=== PATIENT | female | born 1955 | race Caucasian/White ===

== ENCOUNTER 2016-07-17 10:00 | Outpatient (RCR) | payer MEDICARE, BC ==
[2016-04-12 23:50] VITALS: BP 122/64
[~2016-07-17 10:00] MED LIST: ALBUTEROL2.5 MG/3 M IH; AMLODIPINE10 MG PO; B-121000 MCG PO; EPIPEN 2-PAK1 MG/ML MR; FLONASE0.05 MG/AC INH; IBUPROFEN200 M2 PO; LEVSIN0.125 MG PO; LIORESAL 1010 MG/TAB PO; LISINOPRIL20 MG PO; MASON NATURAL2000 IU PO; NEURONTIN300 MG PO; NEURONTIN300 MG/CAP PO; ORPHENADRINE C100 MG PO; PLAQUENIL200 MG PO; PREDNISONE10 M1 PO; QUALITY CHOICE PO; SINGULAIR10 MG PO; SLOW-MAG 6464 MG/TAB PO; SYMBICORT1 AE5 INH; SYNTHROID0.15 MG PO; ULTRAM 50MG TAB50 MG PO; XOPENEX HF0.045 MG/A IH; ZANTAC150 MG PO; ZOFRAN ODT8 MG PO; ZYRTEC10 M1 PO
== END 2016-09-03 10:28 | disposition home or self-care (01) ==
LOC: PT 10:00
DX: Z47.89 Encounter for other orthopedic aftercare (principal)

== ENCOUNTER 2016-09-15 15:06 | Outpatient (RCR) | payer MEDICARE, BC ==
[2016-04-12 23:50] VITALS: BP 122/64
[2016-10-25] MEDS ORDERED: IBU800 M1 PO (16:03)
[2016-10-25] MEDS ORDERED: ULTRAM 50MG TAB50 MG PO (16:04)
[2016-10-25] MEDS ORDERED: OMEPRAZOLE40 MG PO (16:07)
[2016-10-25] MEDS ORDERED: PREDNISONE20 M1 PO (16:33)
[2016-10-25] MEDS ORDERED: VIBRAMYCIN HYC100 MG PO (16:33)
== END 2016-12-14 | disposition home or self-care (01) ==
LOC: PT
DX: Z47.1 Aftercare following joint replacement surgery (principal); Z96.652 Presence of left artificial knee joint

== ENCOUNTER 2016-10-25 15:48 | Emergency (ER) | payer MEDICARE, BC ==
[2016-10-25] MEDS ORDERED: IBU800 M1 PO (16:03)
[2016-10-25] MEDS ORDERED: ULTRAM 50MG TAB50 MG PO (16:04)
[2016-10-25] MEDS ORDERED: OMEPRAZOLE40 MG PO (16:07)
[2016-10-25] MEDS ORDERED: VIBRAMYCIN HYC100 MG PO (16:33)
[2016-10-25] MEDS ORDERED: PREDNISONE20 M1 PO (16:33)
[2016-10-25 16:50] VITALS: BP 124/74
== END 2016-10-25 16:54 | disposition home or self-care (01) ==
LOC: ED 15:48
DX: J44.1 Chronic obstructive pulmonary disease with (acute) exacerbation (principal); J45.909 Unspecified asthma, uncomplicated; F17.210 Nicotine dependence, cigarettes, uncomplicated
CPT/HCPCS: J7512

== ENCOUNTER 2017-11-10 09:00 | Outpatient (RCR) | payer MEDICARE, BC ==
[~2017-11-10 09:00] MED LIST changes: +IBU800 M1 PO; +OMEPRAZOLE40 MG PO; +PREDNISONE20 M1 PO; +VIBRAMYCIN HYC100 MG PO
== END 2017-11-10 09:30 | disposition home or self-care (01) ==
LOC: PT 09:00
DX: Z47.89 Encounter for other orthopedic aftercare (principal); Z96.652 Presence of left artificial knee joint
CPT/HCPCS: G8978-GP; G8979-GP

== ENCOUNTER 2017-12-16 20:31 | Emergency (ER) | payer MEDICARE, BC ==
[2017-12-16 21:55] LABS: HEMATOCRIT 46.1 % (37.0-47.0); MEAN CELL VOLUME 92 fl (78-100); MEAN CORPUSCULAR HEMOGLOBIN 30 pg (27-31); MEAN CORPUSCULAR HGB CONC 33 g/dL (33-37); PLATELET COUNT 191 K/mm3 (130-400); RED BLOOD COUNT 5.01 M/mm3 (4.10-5.30); RED CELL DISTRIBUTION WIDTH 14.8 % (11.5-14.5); WHITE BLOOD COUNT 5.1 K/mm3 (4.8-10.8)
[2017-12-16 22:08] LABS: ALBUMIN 3.8 g/dL (3.5-5.0); BUN/CREATININE RATIO 17.2 (6.0-26.0); CALCIUM 9.1 mg/dL (8.4-10.2); POTASSIUM 4.2 mmol/L (3.6-5.0); TOTAL BILIRUBIN 0.4 mg/dL (0.2-1.3); TOTAL PROTEIN 7.5 g/dL (6.3-8.2)
[2017-12-16 22:40] LABS: LYMPHOCYTE 12 % (20-51); MONOCYTE 11 % (3-10); NEUTROPHILS 76 % (42-75)
[2017-12-16 23:29] LABS: TROPONIN-I < 0.03 ng/mL (0.00-0.06)
[2017-12-16 23:42] VITALS: BP 119/68
--- NOTE | 2017-12-16 23:42 | NUR ---
Patient admitted acute to [facility] via W/C. DX. COPD exacerbation With asthma, N/V. Oriented to room, bed controls. fall precautions and use of bed alarm by BILLING ASSISTANT. Refused to change into a gown.
[2017-12-17] MEDS ORDERED: COENZYME Q-10200 M1 PO (00:38)
[2017-12-17] MEDS ORDERED: MULTI-VITAMIN W1 TA1 PO (00:39)
[2017-12-17] MEDS ORDERED: FISH OIL1 IU PO (00:39)
[2017-12-17] MEDS ORDERED: CEFDINIR300 MG PO (08:32)
[2017-12-17] MEDS ORDERED: ZITHROMAX TRI-500 MG PO (08:32)
[2017-12-17] MEDS ORDERED: PREDNISONE20 M1 PO (08:34)
== END 2017-12-16 23:42 | disposition other institution (70) ==
LOC: ED 20:31 → MED/SURG 23:42
PROVIDERS: Nurse Practitioner Primary Care
DX: J44.0 Chronic obstructive pulmonary disease with (acute) lower respiratory infection (principal); J20.9 Acute bronchitis, unspecified; J44.1 Chronic obstructive pulmonary disease with (acute) exacerbation; I10 Essential (primary) hypertension; F17.200 Nicotine dependence, unspecified, uncomplicated; Z79.899 Other long term (current) drug therapy
CPT/HCPCS: J2405; J2930

== ENCOUNTER → 2017-12-24 | Outpatient (CLI) | payer MEDICARE, BC ==
[2017-12-17 06:35] VITALS: BP 143/92
[~2017-12-24] MED LIST changes: +CEFDINIR300 MG PO; +COENZYME Q-10200 M1 PO; +FISH OIL1 IU PO; +MULTI-VITAMIN W1 TA1 PO; +ZITHROMAX TRI-500 MG PO
== END ==
LOC: RAD 17:18
DX: R94.31 Abnormal electrocardiogram [ECG] [EKG] (principal)

== ENCOUNTER 2018-05-04 20:07 | Emergency (ER) | payer MEDICARE, BC ==
[~2018-05-04] VITALS: Ht 167.6 cm; Wt 90.9 kg
[2018-05-04 20:34] LABS: EOS # 0.4 (0.04-0.40); EOS % 4.9 % (1.0-5.0); HEMATOCRIT 44.3 % (37.0-47.0); HEMOGLOBIN 14.7 g/dL (12.5-16.0); LYMPH# 2.2 (1.50-4.00); MEAN CELL VOLUME 95 fl (78-100); MEAN CORPUSCULAR HEMOGLOBIN 31 pg (27-31); MEAN CORPUSCULAR HGB CONC 33 g/dL (33-37); MEAN PLATELET VOLUME 10.2 fl (7.4-10.4); MONO # 0.9 (0.20-0.80); NEU # 5.1 (1.40-6.50); PLATELET COUNT 250 K/mm3 (130-400); RED BLOOD COUNT 4.68 M/mm3 (4.10-5.30); RED CELL DISTRIBUTION WIDTH 13.6 % (11.5-14.5); WHITE BLOOD COUNT 8.6 K/mm3 (4.8-10.8)
[2018-05-04 20:47] LABS: ALBUMIN 3.8 g/dL (3.5-5.0); CALCIUM 9.4 mg/dL (8.4-10.2); POTASSIUM 3.9 mmol/L (3.6-5.0); TOTAL BILIRUBIN 0.4 mg/dL (0.2-1.3); TOTAL PROTEIN 6.7 g/dL (6.3-8.2)
[2018-05-04 20:54] LABS: CKMB ISOENZYME 3.5 ng/mL (0.6-3.5)
[2018-05-04 20:57] LABS: TROPONIN-I < 0.03 ng/mL (0.00-0.06)
[2018-05-04] MEDS ORDERED: BAYER ADVANCED500 MG PO (20:58)
[2018-05-04] MEDS ORDERED: LYRICA 25MG CAP25 MG PO (20:58)
[2018-05-04 21:03] LABS: PARTIAL THROMBOPLASTIN TIME 23.7 SECONDS (21.0-32.0)
[2018-05-05 00:45] LABS: TROPONIN-I 0.13 ng/mL (0.00-0.06)
[2018-05-05 01:51] LABS: PROTHROMBIN TIME 9.9 SECONDS (9.0-12.0)
[2018-05-05 01:57] VITALS: BP 141/91
== END 2018-05-05 01:57 | disposition short-term general hospital (02) ==
LOC: ED 20:07
PROVIDERS: Nurse Practitioner Family
DX: I21.4 Non-ST elevation (NSTEMI) myocardial infarction (principal); I10 Essential (primary) hypertension; E78.5 Hyperlipidemia, unspecified; K21.9 Gastro-esophageal reflux disease without esophagitis; F17.210 Nicotine dependence, cigarettes, uncomplicated; Z79.82 Long term (current) use of aspirin; Z79.899 Other long term (current) drug therapy; E03.9 Hypothyroidism, unspecified
CPT/HCPCS: J1644; J1885; J2405; J7030

== ENCOUNTER 2018-08-15 16:27 | Emergency (ER) | payer MEDICARE, BC ==
[~2018-08-15] VITALS: Ht 162.6 cm; Wt 95.5 kg
[~2018-08-15 16:27] MED LIST changes: +BAYER ADVANCED500 MG PO; +LYRICA 25MG CAP25 MG PO
[2018-08-15] MEDS ORDERED: PANTOPRAZOLE SO40 MG PO (18:03)
[2018-08-15 19:46] VITALS: BP 134/91
== END 2018-08-15 19:46 | disposition home or self-care (01) ==
LOC: ED 16:27
DX: S80.11XA Contusion of right lower leg, initial encounter (principal); I10 Essential (primary) hypertension; I25.10 Atherosclerotic heart disease of native coronary artery without angina pectoris; J44.9 Chronic obstructive pulmonary disease, unspecified; L94.9 Localized connective tissue disorder, unspecified; F17.210 Nicotine dependence, cigarettes, uncomplicated; Z98.890 Other specified postprocedural states; Z90.710 Acquired absence of both cervix and uterus; Z96.653 Presence of artificial knee joint, bilateral; W22.03XA Walked into furniture, initial encounter; Y92.009 Unspecified place in unspecified non-institutional (private) residence as the place of occurrence of the external cause

== ENCOUNTER 2019-01-05 13:00 | Outpatient (RCR) | payer MEDICARE, BC ==
[~2019-01-05 13:00] MED LIST changes: +PANTOPRAZOLE SO40 MG PO
== END 2019-01-09 | disposition still patient (30) ==
LOC: PT
DX: M54.12 Radiculopathy, cervical region (principal); G62.9 Polyneuropathy, unspecified; R29.898 Other symptoms and signs involving the musculoskeletal system; R53.1 Weakness

== ENCOUNTER 2019-02-02 11:00 | Outpatient (RCR) | payer MEDICARE, BC | END 2019-02-02 11:30 | LOC: PT | DX: M54.12 Radiculopathy, cervical region (principal); G62.9 Polyneuropathy, unspecified; R29.898 Other symptoms and signs involving the musculoskeletal system ==

== ENCOUNTER → 2019-03-09 | Outpatient (CLI) | payer MEDICARE, BC | LOC: MAMMO 08:27 | DX: Z12.31 Encounter for screening mammogram for malignant neoplasm of breast (principal) ==

== ENCOUNTER 2019-04-02 17:37 | Emergency (ER) | payer MEDICARE, BC ==
[2019-04-02 18:07] LABS: HEMATOCRIT 43.4 % (37.0-47.0); HEMOGLOBIN 14.7 g/dL (12.5-16.0); MEAN CELL VOLUME 90 fl (78-100); MEAN CORPUSCULAR HEMOGLOBIN 30 pg (27-31); MEAN CORPUSCULAR HGB CONC 34 g/dL (33-37); MEAN PLATELET VOLUME 11.1 fl (7.4-10.4); PLATELET COUNT 225 K/mm3 (130-400); RED BLOOD COUNT 4.83 M/mm3 (4.10-5.30); RED CELL DISTRIBUTION WIDTH 13.8 % (11.5-14.5)
[2019-04-02 18:15] LABS: ALBUMIN 3.3 g/dL (3.4-4.8); POTASSIUM 4.1 mmol/L (3.5-5.1)
[2019-04-02 18:17] LABS: TOTAL PROTEIN 7.8 g/dL (6.2-8.1)
[2019-04-02 18:19] LABS: TOTAL BILIRUBIN 0.5 mg/dL (0.2-1.2)
[2019-04-02 18:31] LABS: URINE APPEARANCE CLOUDY; URINE BILIRUBIN NEGATIVE (NEGATIVE); URINE BLOOD 250 ery/uL (NEGATIVE); URINE COLOR AMBER; URINE GLUCOSE NEGATIVE (NEGATIVE); URINE KETONE 2+ (NEGATIVE); URINE LEUKOCYTE ESTERASE TRACE (NEGATIVE); URINE NITRATE NEGATIVE (NEGATIVE); URINE PROTEIN(semi-quant) 3+ mg/dL (NEGATIVE); URINE UROBILINOGEN NORMAL (NORMAL); URINE WBC 16-30 /hpf (0-3)
[2019-04-02 18:32] LABS: LYMPHOCYTE 4 % (20-51); MONOCYTE 11 % (3-10); NEUTROPHILS 85 % (42-75)
[2019-04-02] MEDS ORDERED: ASPIRIN E.C. 8181 MG PO (20:11)
[2019-04-02] MEDS ORDERED: NITROGLYCERIN0.4 M1 SL (20:12)
[2019-04-02] MEDS ORDERED: CEFDINIR300 MG PO (21:47)
[2019-04-02 21:56] VITALS: BP 132/76
== END 2019-04-02 21:56 | disposition home or self-care (01) ==
LOC: ED 17:37
PROVIDERS: Family Medicine
DX: N39.0 Urinary tract infection, site not specified (principal); E86.9 Volume depletion, unspecified; J44.9 Chronic obstructive pulmonary disease, unspecified; K21.9 Gastro-esophageal reflux disease without esophagitis; F17.210 Nicotine dependence, cigarettes, uncomplicated; Z90.710 Acquired absence of both cervix and uterus; Z98.890 Other specified postprocedural states; Z79.82 Long term (current) use of aspirin; Z79.51 Long term (current) use of inhaled steroids
CPT/HCPCS: A4216; J0696; J2405; J7030

== ENCOUNTER 2019-12-27 21:47 | Emergency (ER) | payer MEDICARE, BC ==
[~2019-12-27] VITALS: Ht 165.1 cm; Wt 96.8 kg
[~2019-12-27 21:47] MED LIST changes: +AMLODIPINE BESYL5 MG PO; -AMLODIPINE10 MG PO; +ASPIRIN E.C. 8181 MG PO; +NITROGLYCERIN0.4 M1 SL
[2019-12-27 23:03] LABS: BASO # 0.1 (0.02-0.10); EOS # 0.3 (0.04-0.40); EOS % 4.3 % (1.0-5.0); HEMATOCRIT 43.8 % (37.0-47.0); HEMOGLOBIN 14.4 g/dL (12.5-16.0); LYMPH# 1.5 (1.50-4.00); MEAN CELL VOLUME 94 fl (78-100); MEAN CORPUSCULAR HEMOGLOBIN 31 pg (27-31); MEAN CORPUSCULAR HGB CONC 33 g/dL (33-37); MEAN PLATELET VOLUME 10.2 fl (7.4-10.4); MONO # 0.8 (0.20-0.80); NEU # 4.4 (1.40-6.50); PLATELET COUNT 226 K/mm3 (130-400); RED BLOOD COUNT 4.68 M/mm3 (4.10-5.30)
[2019-12-27 23:14] LABS: ALBUMIN 3.6 g/dL (3.4-4.8); POTASSIUM 3.8 mmol/L (3.5-5.1); SODIUM 143 mmol/L (136-145)
[2019-12-27 23:15] LABS: CALCIUM 9.6 mg/dL (8.3-10.5)
[2019-12-27 23:16] LABS: GLUCOSE 109 mg/dL (65-105)
[2019-12-27 23:17] LABS: TOTAL PROTEIN 6.5 g/dL (6.2-8.1)
[2019-12-27 23:18] LABS: CARBON DIOXIDE 23 mmol/L (23-31); TOTAL BILIRUBIN 0.3 mg/dL (0.2-1.2)
[2019-12-27 23:22] LABS: AST-SGOT 26 U/L (5-34)
[2019-12-27 23:23] LABS: ALT/SGPT 28 U/L (0-55)
[2019-12-27 23:29] LABS: CKMB ISOENZYME 3.2 ng/mL (0.0-3.5)
[2019-12-27 23:32] LABS: TROPONIN-I < 0.03 ng/mL (<0.030)
[2019-12-28 01:23] VITALS: BP 146/92
== END 2019-12-28 01:23 | disposition left against medical advice (07) ==
LOC: ED 21:47
PROVIDERS: Nurse Practitioner Family
DX: R00.2 Palpitations (principal); R07.89 Other chest pain; I25.2 Old myocardial infarction; I10 Essential (primary) hypertension; J45.909 Unspecified asthma, uncomplicated; K21.9 Gastro-esophageal reflux disease without esophagitis; E78.5 Hyperlipidemia, unspecified; F17.210 Nicotine dependence, cigarettes, uncomplicated; Z79.82 Long term (current) use of aspirin; Z96.659 Presence of unspecified artificial knee joint

== ENCOUNTER → 2020-12-26 13:55 | Outpatient (RCR) | payer MEDICARE, BC ==
[~2020-12-26 13:55] MED LIST changes: +ASMANEX220 MCG IH; +BAYER BACK & B1 EACH PO; +BREO ELLIPTA 21 EACH IH; +EPIPEN 2-PAK1 MG/ML IM; -EPIPEN 2-PAK1 MG/ML MR; -FISH OIL1 IU PO; +FLONASE ALLERG9.9 ML NS; -FLONASE0.05 MG/AC INH; -LYRICA 25MG CAP25 MG PO; +LYRICA75 MG PO; -MASON NATURAL2000 IU PO; +MUCUS RELIEF600 MG PO; +OMEGA 3 1,0001 EACH PO; +PRILOSEC OTC20 MG PO; +PROVENTIL0.09 MG/A1 IH; +SINGULAIR PO; -SINGULAIR10 MG PO; +SLOW-MAG 106 MG1 ECT PO; -SLOW-MAG 6464 MG/TAB PO; +SPIRIVA RE2.5 MCG/Ac IH; +TIAZAC180 MG PO; +TIZANIDINE HYDRO4 M1 PO; +ULTRAM50 M1 PO; +VITAMIN C100 M3 PO; +VITAMIN D325 MC1 PO; -ZYRTEC10 M1 PO; +ZYRTEC10 M3 PO
== END ==
LOC: PT 09-20 09:59
DX: M25.571 Pain in right ankle and joints of right foot (principal); G89.29 Other chronic pain

== ENCOUNTER 2020-12-26 14:17 | Outpatient (RCR) | payer MEDICARE, BC ==
[~2020-12-26 14:17] MED LIST changes: -ASMANEX220 MCG IH; -BAYER BACK & B1 EACH PO; -BREO ELLIPTA 21 EACH IH; -MUCUS RELIEF600 MG PO; -PRILOSEC OTC20 MG PO; -PROVENTIL0.09 MG/A1 IH; -SPIRIVA RE2.5 MCG/Ac IH; -TIAZAC180 MG PO; -TIZANIDINE HYDRO4 M1 PO; -VITAMIN C100 M3 PO
[2021-01-30] MEDS ORDERED: PROVENTIL0.09 MG/A1 IH (18:21)
[2021-01-30] MEDS ORDERED: VITAMIN C100 M3 PO (18:23)
[2021-01-30] MEDS ORDERED: BAYER BACK & B1 EACH PO (18:24)
[2021-01-30] MEDS ORDERED: TIAZAC180 MG PO (18:26)
[2021-01-30] MEDS ORDERED: BREO ELLIPTA 21 EACH IH (18:27)
[2021-01-30] MEDS ORDERED: MUCUS RELIEF600 MG PO (18:28)
[2021-01-30] MEDS ORDERED: ASMANEX220 MCG IH (18:32)
[2021-01-30] MEDS ORDERED: PRILOSEC OTC20 MG PO (18:34)
[2021-01-30] MEDS ORDERED: SPIRIVA RE2.5 MCG/Ac IH (18:35)
[2021-01-30] MEDS ORDERED: TIZANIDINE HYDRO4 M1 PO (18:38)
== END 2021-03-26 | disposition home or self-care (01) ==
LOC: PT
DX: M25.571 Pain in right ankle and joints of right foot (principal); G89.29 Other chronic pain; Z47.89 Encounter for other orthopedic aftercare

== ENCOUNTER 2021-01-31 08:03 | Outpatient (RCR) | payer MEDICARE, BC ==
[2021-01-30 18:00] VITALS: BP 144/89
[~2021-01-31 08:03] MED LIST changes: +ASMANEX220 MCG IH; +BAYER BACK & B1 EACH PO; +BREO ELLIPTA 21 EACH IH; +MUCUS RELIEF600 MG PO; +PRILOSEC OTC20 MG PO; +PROVENTIL0.09 MG/A1 IH; +SPIRIVA RE2.5 MCG/Ac IH; +TIAZAC180 MG PO; +TIZANIDINE HYDRO4 M1 PO; +VITAMIN C100 M3 PO
[2021-01-31 08:07] VITALS: BP 169/99
== END 2021-01-31 10:00 | disposition home or self-care (01) ==
LOC: AMSURD 08:03
DX: I82.461 Acute embolism and thrombosis of right calf muscular vein (principal)
CPT/HCPCS: J1650

== ENCOUNTER 2021-03-22 13:31 | Outpatient (RCR) | payer MEDICARE, BC | END 2021-06-20 | LOC: PT | DX: M79.671 Pain in right foot (principal) ==

== ENCOUNTER → 2021-05-16 | Outpatient (CLI) | payer MEDICARE, BC | LOC: VAS 10:38 | DX: Z86.718 Personal history of other venous thrombosis and embolism (principal) ==

== ENCOUNTER 2021-11-14 10:59 | Outpatient (RCR) | payer MEDICARE, BC | END 2021-12-10 | disposition home or self-care (01) | LOC: PT | DX: M25.571 Pain in right ankle and joints of right foot (principal) ==

== ENCOUNTER 2021-12-17 10:30 | Outpatient (RCR) | payer MEDICARE, BC | END 2022-01-09 | disposition home or self-care (01) | LOC: PT | DX: M25.571 Pain in right ankle and joints of right foot (principal) ==

== ENCOUNTER → 2022-01-08 | Outpatient (CLI) | payer MEDICARE, BC | LOC: MAMMO 10:45 | DX: Z12.31 Encounter for screening mammogram for malignant neoplasm of breast (principal) ==

== ENCOUNTER 2022-01-23 08:00 | Outpatient (RCR) | payer MEDICARE, BC | END 2022-02-09 | disposition home or self-care (01) | LOC: PT | DX: M25.571 Pain in right ankle and joints of right foot (principal) ==

== ENCOUNTER 2022-02-10 08:00 | Outpatient (RCR) | payer MEDICARE, BC | END 2022-03-12 14:17 | disposition still patient (30) | LOC: PT 08:00 | DX: M25.571 Pain in right ankle and joints of right foot (principal) ==

== ENCOUNTER 2022-05-15 10:54 | Outpatient (RCR) | payer MEDICARE, BC | END 2022-06-11 | disposition home or self-care (01) | LOC: PT | DX: M54.42 Lumbago with sciatica, left side (principal); G89.29 Other chronic pain ==

== ENCOUNTER → 2022-08-21 | Outpatient (CLI) | payer MEDICARE, BC ==
[~2022-08-21] MED LIST changes: +CARDIZEM CD 24240 MG PO; +IPRATROPIUM BROM3 M1 IH; +LEVOTHYROXIN0.137 MG PO; +SYNTHROID25 MCG PO
== END ==
LOC: MAMMO 09:15 → RAD 09:28
DX: M81.0 Age-related osteoporosis without current pathological fracture (principal)

== ENCOUNTER 2022-09-16 08:00 | Outpatient (RCR) | payer MEDICARE, BC | END 2022-10-10 | disposition home or self-care (01) | LOC: PT | DX: M25.369 Other instability, unspecified knee (principal) ==

== ENCOUNTER → 2022-09-25 | Outpatient (CLI) | payer MEDICARE, BC | LOC: RAD 17:47 | DX: M47.816 Spondylosis without myelopathy or radiculopathy, lumbar region (principal); M43.16 Spondylolisthesis, lumbar region; M48.061 Spinal stenosis, lumbar region without neurogenic claudication | CPT/HCPCS: A9575 ==

== ENCOUNTER → 2023-03-26 | Outpatient (CLI) | payer MEDICARE, BC ==
[~2023-03-26] MED LIST changes: +ROXICODONE 55 MG/TAB PO
== END ==
LOC: MAMMO 14:06
DX: Z12.31 Encounter for screening mammogram for malignant neoplasm of breast (principal)

== ENCOUNTER → 2023-03-26 | Outpatient (CLI) | payer MEDICARE, BC | LOC: RAD 14:08 | DX: M48.02 Spinal stenosis, cervical region (principal); G95.9 Disease of spinal cord, unspecified; Z98.1 Arthrodesis status | CPT/HCPCS: A9575 ==

== ENCOUNTER 2023-11-06 22:38 | Emergency (ER) | payer MEDICARE, BC ==
[2023-11-06 22:59] LABS: BASO # 0.04 K/mm3 (0.02-0.10); EOS % 3.4 % (1.0-5.0); HEMATOCRIT 45.2 % (37.0-47.0); HEMOGLOBIN 14.9 g/dL (12.5-16.0); MEAN CELL VOLUME 91 fl (78-100); MEAN CORPUSCULAR HEMOGLOBIN 30 pg (27-31); MEAN CORPUSCULAR HGB CONC 33 g/dL (33-37); MEAN PLATELET VOLUME 9.7 fl (7.4-10.4); MONO # 1.01 K/mm3 (0.20-0.80); NEU # 7.79 K/mm3 (1.40-6.50); PLATELET COUNT 269 K/mm3 (130-400); RED BLOOD COUNT 4.97 M/mm3 (4.10-5.30); RED CELL DISTRIBUTION WIDTH 13.9 % (11.5-14.5); WHITE BLOOD COUNT 11.9 K/mm3 (4.8-10.8)
[2023-11-06] MEDS ORDERED: methylPREDNISolone Sod Succ 40 MG/ML VIAL IV ONE (23:00)
[2023-11-06] MEDS ORDERED: Famotidine 20 MG/2 ML VIAL IV ONE (23:00)
[2023-11-06] MEDS ORDERED: diphenhydrAMINE 50 MG/ML 1 ML VIAL IV ONE (23:00)
[2023-11-06 23:04] LABS: ALBUMIN 3.8 g/dL (3.4-4.8); SODIUM 141 mmol/L (136-145)
[2023-11-06 23:06] LABS: CALCIUM 9.4 mg/dL (8.3-10.5)
[2023-11-06 23:07] LABS: GLUCOSE 135 mg/dL (65-105)
[2023-11-06 23:08] LABS: CARBON DIOXIDE 22 mmol/L (23-31)
[2023-11-06 23:09] LABS: TOTAL BILIRUBIN 0.2 mg/dL (0.2-1.2)
[2023-11-06 23:12] LABS: AST-SGOT 22 U/L (5-34)
[2023-11-06 23:13] LABS: ALT/SGPT 19 U/L (0-55)
[2023-11-06 23:19] LABS: TROPONIN-I < 0.030 ng/mL (0.00-0.033)
[2023-11-07 00:07] VITALS: BP 151/107
== END 2023-11-07 00:07 | disposition home or self-care (01) ==
LOC: ED 22:38
PROVIDERS: Family Medicine
DX: T78.1XXA Other adverse food reactions, not elsewhere classified, initial encounter (principal); R13.10 Dysphagia, unspecified
CPT/HCPCS: J1200; J2919; J3490

== ENCOUNTER 2024-04-29 14:37 | Outpatient (RCR) | payer MEDICARE, BC | END 2024-05-12 | disposition home or self-care (01) | LOC: PT | DX: M19.012 Primary osteoarthritis, left shoulder (principal) ==

== ENCOUNTER 2024-07-24 18:32 | Emergency (ER) | payer MEDICARE, BC ==
[~2024-07-24] VITALS: Ht 165.1 cm; Wt 102.1 kg
[2024-07-24] MEDS ORDERED: Albuterol/Ipratropium 3 MG-0.5 MG/3 ML Neb Soln IH ONE ×2 (19:15→20:30)
[2024-07-24] MEDS ORDERED: METHOCARBAMOL500 M1 PO (19:18)
[2024-07-24] MEDS ORDERED: PRALUENT P75 MG/1 ML SQ (19:27)
[2024-07-24 19:57] LABS: BASO # 0.05 K/mm3 (0.02-0.10); EOS # 0.25 K/mm3 (0.04-0.40); EOS % 2.9 % (1.0-5.0); HEMATOCRIT 44.1 % (37.0-47.0); HEMOGLOBIN 14.5 g/dL (12.5-16.0); LYMPH# 2.01 K/mm3 (1.50-4.00); MEAN CELL VOLUME 92 fl (78-100); MEAN CORPUSCULAR HEMOGLOBIN 30 pg (27-31); MEAN CORPUSCULAR HGB CONC 33 g/dL (33-37); MEAN PLATELET VOLUME 9.9 fl (7.4-10.4); MONO # 0.69 K/mm3 (0.20-0.80); NEU # 5.46 K/mm3 (1.40-6.50); PLATELET COUNT 308 K/mm3 (130-400); RED BLOOD COUNT 4.81 M/mm3 (4.10-5.30); RED CELL DISTRIBUTION WIDTH 13.5 % (11.5-14.5); WHITE BLOOD COUNT 8.5 K/mm3 (4.8-10.8)
[2024-07-24 20:11] LABS: ALBUMIN 3.6 g/dL (3.4-4.8); SODIUM 142 mmol/L (136-145)
[2024-07-24 20:12] LABS: CALCIUM 9.3 mg/dL (8.3-10.5)
[2024-07-24 20:13] LABS: GLUCOSE 92 mg/dL (65-105); TOTAL PROTEIN 6.9 g/dL (6.2-8.1)
[2024-07-24 20:15] LABS: CARBON DIOXIDE 25 mmol/L (23-31); TOTAL BILIRUBIN 0.2 mg/dL (0.2-1.2)
[2024-07-24 20:19] LABS: AST-SGOT 24 U/L (5-34)
[2024-07-24 20:20] LABS: ALT/SGPT 17 U/L (0-55)
[2024-07-24 20:25] LABS: TROPONIN-I < 0.030 ng/mL (0.00-0.033)
[2024-07-24] MEDS ORDERED: methylPREDNISolone Sod Succ 125 MG/2 ML VIAL IV ONE (20:30)
[2024-07-24] MEDS ORDERED: Azithromycin 250 MG TAB PO ONE (20:30)
[2024-07-24 20:39] LABS: D-DIMER 1.39 mg/L FEU (0.15-0.50)
[2024-07-24] MEDS ORDERED: Iohexol 350 - 100 ML VIAL IV ONE (21:30)
[2024-07-24] MEDS ORDERED: Albuterol 90 MCG/PUFF MDI IH ONE (22:00)
[2024-07-24] MEDS ORDERED: PREDNISONE20 M1 PO (22:03)
[2024-07-24] MEDS ORDERED: NEB (22:03)
[2024-07-24] MEDS ORDERED: ZITHROMAX 250M250 MG PO (22:03)
[2024-07-24] MEDS ORDERED: IPRATROPIUM BROM3 M1 IH (22:03)
[2024-07-24 22:48] VITALS: BP 157/103
== END 2024-07-24 23:31 | disposition home or self-care (01) ==
LOC: ED 18:32
PROVIDERS: Physician Assistant
DX: J96.01 Acute respiratory failure with hypoxia (principal); J06.9 Acute upper respiratory infection, unspecified; J40 Bronchitis, not specified as acute or chronic
CPT/HCPCS: J2919; Q9967

== ENCOUNTER → 2024-07-29 | Outpatient (CLI) | payer MEDICARE, BC ==
[~2024-07-29] MED LIST changes: +METHOCARBAMOL500 M1 PO; +NEB; +PRALUENT P75 MG/1 ML SQ; +ZITHROMAX 250M250 MG PO
== END ==
LOC: MAMMO 10:00
DX: Z12.31 Encounter for screening mammogram for malignant neoplasm of breast (principal)